=== PATIENT | female | born 1960 | race Caucasian/White ===

== ENCOUNTER 2025-02-20 02:25 | Emergency (ER) | payer OTHER ==
[~2025-02-20] VITALS: Ht 160 cm; Wt 68.2 kg
[2025-02-20 02:58] LABS: KETONE, URINE AUTO RFX NEGATIVE (NEGATIVE); LEUKOCYTE ESTERASE UR AUTO RFX 1+ (NEGATIVE); MUCUS, URINE RFX SMALL (NEGATIVE); NITRITE, URINE AUTO RFX NEGATIVE (NEGATIVE); RBC, URINE AUTO RFX 3 /HPF (0-3); SQUAM EPITHELIAL CELL UR AURFX 1 /HPF (0-6); WBC, URINE AUTO RFX 25 /HPF (0-3)
[2025-02-20] MEDS: ONDANSETRON 4MG/2ML VIAL IV ONE (03:09)
[2025-02-20] MEDS: NS (Normal Saline) 0.9% 1,000 ML IV ONE (03:10)
[2025-02-20] MEDS: KETOROLAC 30 MG/ML 1 ML VIAL IV ONE (03:10)
[2025-02-20] MEDS: MORPHINE 4 MG/ML 1 ML VIAL IV PRN (03:30)
[2025-02-20 03:34] LABS: BASO # 0.1 10^3/uL (0.0-0.2); BASO % 0.7 % (0.0-1.0); EOS # 0.2 10^3/uL (0.0-0.5); EOS % 2.5 % (0.0-3.0); LYMPH # 2.4 10^3/uL (1.5-5.0); LYMPH % 33.3 % (24.0-44.0); MONO # 0.7 10^3/uL (0.0-0.8); MONO % 9.5 % (2.0-8.0); NEUTROPHILS # 3.9 10^3/uL (1.5-8.5); NEUTROPHILS % 53.9 % (36.0-66.0); PLATELET COUNT, AUTOMATED 255 10^3/uL (150-450)
[2025-02-20 03:53] LABS: ALT/SGPT 62 U/L (7.0-40); AST/SGOT 59 U/L (<34); CALCIUM LEVEL 9.9 MG/DL (8.3-10.6); CARBON DIOXIDE LEVEL 22 MMOL/L (20-31); CHLORIDE LEVEL 107 MMOL/L (98-107); CREATININE FOR GFR 0.67 MG/DL (0.55-1.30); GLOMERULAR FILTRATION RATE > 90.0 (>45); POTASSIUM SERUM 4.3 MMOL/L (3.5-5.1); SODIUM LEVEL 141 MMOL/L (136-145)
[2025-02-20 06:22] VITALS: BP 138/74
[2025-02-20] MEDS ORDERED: TAMS1CAP17 PO (06:32)
[2025-02-20] MEDS ORDERED: PERC5TAB12 PO (06:32)
[2025-02-20 06:37] VITALS: TEMP 97.5; O2SAT 96
[2025-02-20] MEDS: TAMSULOSIN 0.4 MG CAP PO ONE (06:44)
[2025-02-20] MEDS: OXYCODONE/APAP 5MG/325MG(HOME DOSE PACK) PO ONE (06:45)
== END 2025-02-20 07:00 | disposition home or self-care (01) ==
LOC: M ED 02:25
DX: N20.1 Calculus of ureter (principal); N28.1 Cyst of kidney, acquired; M51.369 Other intervertebral disc degeneration, lumbar region without mention of lumbar back pain or lower extremity pain; K21.9 Gastro-esophageal reflux disease without esophagitis; I10 Essential (primary) hypertension; Z87.442 Personal history of urinary calculi; Z88.8 Allergy status to other drugs, medicaments and biological substances; Z79.899 Other long term (current) drug therapy
CPT/HCPCS: 74176; 80048; 80076; 81001; 83605; 83690; 85025; 87086; 93041; 96361; 96374; 96375; 99284; J1885; J2405